=== PATIENT | male | born 1975 | race Hispanic/Latino ===

== ENCOUNTER → 2018-08-22 11:03 | Outpatient (CLI) | payer OTHER, SELFPAY ==
--- NOTE | 2018-08-22 | DI.CT.S_ITS ---
PROCEDURE: CT ABDOMEN PELVIS WO/W CON INDICATIONS: Hematuria, unspecified TECHNIQUE: Optional 5 mm thick noncontrast images acquired from the diaphragm to the symphysis pubis. After the administration of intravenous contrast, 5 mm thick images acquired from the diaphragm to the symphysis pubis after a 10-minute delay. 2 mm thick coronal and sagittal reformats were then performed of the kidneys and ureters. For radiation dose reduction, the following was used: automated exposure control, adjustment of mA and/or kV according to patient size. COMPARISON: None. FINDINGS: Image quality: Excellent. Lung bases: Lung bases are clear. Heart size is normal. Urinary system: Both kidneys are normal in size, without hydronephrosis. Tiny nonobstructing left renal stones are seen, with the largest measuring 2-3 mm. No perinephric fat stranding. There is normal bilateral renal enhancement. Renal calyces appear normal in morphology when filled with contrast. Opacified portions of both ureters demonstrate normal caliber. Bladder wall thickness is normal. No calcified bladder stones. Other solid organs: Liver is normal in size and enhancement. Gallbladder demonstrates gallstones within its lumen. Biliary system is non dilated. Pancreas enhances normally. Spleen is normal in size and enhancement. No adrenal nodules. Peritoneum and bowel: Bowel loops demonstrate normal wall thickness and caliber. No free fluid or air. Incidental note is made of a normal-appearing appendix. Diverticulosis is seen, without findings of active diverticulitis. Nodes and vessels: No retroperitoneal or mesenteric adenopathy by size criteria. Aorta and inferior vena cava are normal in size. Abdominal wall: A mild periumbilical hernia is seen, containing fat. Pelvis: No pathologic free pelvic fluid. No inguinal hernias or adenopathy. Bones: No suspicious bony lesions. No vertebral body compression fractures. IMPRESSION: Small nonobstructing left renal stones are seen. No additional significant urinary system abnormality can be seen. Gallstones are noted. Incidental note is made of: Normal appendix Fat containing umbilical hernia Diverticulosis is seen, without findings of active diverticulitis. Dictated by: Chandu Means M.D. on 08/22/2018 at 13:05 Approved by: Chandu Means M.D. on 08/22/2018 at 13:07
== END ==
PROVIDERS: Visit Provider Specialist
DX: R31.9 Hematuria, unspecified (principal); N20.0 Calculus of kidney; K80.20 Calculus of gallbladder without cholecystitis without obstruction; K57.90 Diverticulosis of intestine, part unspecified, without perforation or abscess without bleeding; K42.9 Umbilical hernia without obstruction or gangrene
CPT/HCPCS: 74178; Q9967

== ENCOUNTER → 2019-02-26 09:22 | Outpatient (CLI) | payer OTHER, SELFPAY ==
--- NOTE | 2019-02-26 | DI.RAD.S_ITS ---
PROCEDURE: XR KUB INDICATIONS: Calculus of kidney TECHNIQUE: One view of the abdomen acquired. COMPARISON: [facility], CT, CT ABDOMEN PELVIS WO/W CON, 08/22/2018, 11:21. FINDINGS: Surgical changes and devices: None. Bowel: Bowel gas pattern is normal. Incidental cholelithiasis. Possible punctate nephrolithiasis projecting in the region of the upper pole of the left kidney although technically indeterminate Bones: No suspicious bony lesions. IMPRESSION: Previously described left nephrolithiasis difficult to visualize radiographically, as above. Dictated by: Alexis Prado M.D. on 02/26/2019 at 12:37 Approved by: Alexis Prado M.D. on 02/26/2019 at 12:52
== END ==
PROVIDERS: PCP Specialist; Visit Provider Specialist
DX: N20.0 Calculus of kidney (principal); K80.20 Calculus of gallbladder without cholecystitis without obstruction
CPT/HCPCS: 74018

== ENCOUNTER → 2021-08-21 12:39 | Outpatient (CLI) | payer OTHER, SELFPAY ==
--- NOTE | 2021-08-21 12:41 | DI.RAD.S_ITS ---
PROCEDURE: XR KUB INDICATIONS: kidney stones TECHNIQUE: One view of the abdomen acquired. COMPARISON: [facility], , XR KUB, 02/26/2019, 9:27. FINDINGS: Surgical changes and devices: None. Bowel: Bowel gas pattern is normal. Soft tissues: No visible calcifications projecting over the renal shadows. Organ shadows are normal. Gallstones are incidentally noted. Bones: No suspicious bony lesions. IMPRESSION: 1. No radiographic evidence of urinary calcifications. If there is continued concern for urinary calcification, CT KUB is recommended. Dictated by: Kami Deal M.D. on 08/21/2021 at 16:44 Approved by: Kami Deal M.D. on 08/21/2021 at 16:45
== END ==
PROVIDERS: PCP Specialist; Referring Provider Specialist; Visit Provider Specialist
DX: N20.0 Calculus of kidney (principal)
CPT/HCPCS: 74018

== ENCOUNTER → 2021-09-17 09:53 | Outpatient (CLI) | payer OTHER, SELFPAY ==
--- NOTE | 2021-09-17 09:54 | DI.CT.S_ITS ---
PROCEDURE: CT ABDOMEN PELVIS WO/W CON INDICATIONS: calculus of kidney TECHNIQUE: Optional 5 mm thick noncontrast images acquired from the diaphragm to the symphysis pubis. After the administration of intravenous contrast, 5 mm thick images acquired from the diaphragm to the symphysis pubis after a 10-minute delay. 2 mm thick coronal and sagittal reformats were then performed of the kidneys and ureters. For radiation dose reduction, the following was used: automated exposure control, adjustment of mA and/or kV according to patient size. COMPARISON: [facility], CR, XR KUB, 08/21/2021, 12:31. [facility], CT, CT ABDOMEN PELVIS WO/W CON, 08/22/2018, 11:21. FINDINGS: Image quality: Excellent. Lung bases: Lung bases are clear. Heart size is normal. Urinary system: Kidneys are both normal size with symmetric enhancement. There are small cortical cysts bilaterally. No hydronephrosis. Punctate right midpole calculus and left upper pole calculus. No filling defects in the intrarenal collecting systems. The ureters are normal caliber and there are no ureteral calcifications. The urinary bladder is decompressed without calcifications. Other solid organs: The liver is normal in size and density. The gallbladder is decompressed and there are two calcifications layering dependently both measuring 1.0 cm. No biliary dilatation. Normal pancreas, spleen, and adrenal glands. Peritoneum and bowel: Scattered ruffin colonic diverticulosis. Bowel loops demonstrate normal wall thickness and caliber. No free fluid or air. Normal appendix. Nodes and vessels: No retroperitoneal or mesenteric adenopathy by size criteria. Aorta and inferior vena cava are normal in size. Abdominal wall: No ventral hernias. Pelvis: No pathologic free pelvic fluid. No inguinal hernias or adenopathy. Normal size prostate gland. Bones: No suspicious bony lesions. No vertebral body compression fractures. IMPRESSION: 1. Punctate nonobstructing bilateral intrarenal calculi. 2. No other evidence of urinary calcifications, suspicious soft tissue lesions, or obstruction. 3. Cholelithiasis. 4. Ruffin colonic diverticulosis. Dictated by: Kami Deal M.D. on 09/17/2021 at 12:27 Approved by: Kami Deal M.D. on 09/17/2021 at 12:31
== END ==
PROVIDERS: Referring Provider Specialist; Visit Provider Specialist
DX: N20.0 Calculus of kidney (principal); K80.20 Calculus of gallbladder without cholecystitis without obstruction; K57.90 Diverticulosis of intestine, part unspecified, without perforation or abscess without bleeding
CPT/HCPCS: 74178; Q9967

== ENCOUNTER → 2022-10-22 14:27 | Outpatient (CLI) | payer OTHER, SELFPAY ==
--- NOTE | 2022-10-22 14:28 | DI.RAD.S_ITS ---
PROCEDURE: XR KUB INDICATIONS: kidney calculus TECHNIQUE: One view of the abdomen acquired. COMPARISON: [facility], CR, XR KUB, 08/21/2021, 12:31. [facility], CR, XR KUB, 02/26/2019, 9:27. FINDINGS: Surgical changes and devices: None. Bowel: Bowel gas pattern is normal. Soft tissues: No suspicious abdominal calcifications. Visualized solid organ contours appear normal in size. Cholelithiasis. Bones: No suspicious bony lesions. IMPRESSION: No nephrolithiasis. Cholelithiasis. Dictated by: Amor Deras M.D. on 10/22/2022 at 16:04 Approved by: Amor Deras M.D. on 10/22/2022 at 16:05
== END ==
PROVIDERS: PCP Nurse Practitioner Family; Referring Provider Specialist; Visit Provider Specialist
DX: N20.0 Calculus of kidney (principal); K80.20 Calculus of gallbladder without cholecystitis without obstruction
CPT/HCPCS: 74018